=== PATIENT | female | born 1995 | race Two or more races ===

== ENCOUNTER 2019-01-18 11:06 | Emergency (ER) | payer OTHER ==
[~2019-01-18] VITALS: Ht 162.6 cm; Wt 75.7 kg
[2019-01-18 12:19] LABS: BILIRUBIN,URINE NEGATIVE (NEG); CLARITY,URINE CLEAR; COLOR,URINE YELLOW; NITRITE,URINE NEGATIVE (NEG); PROTEIN,URINE 30 mg/dL (NEG-TRACE); UROBILINOGEN,URINE 0.2 mg/dL (0.2 mg/dL)
[2019-01-18 12:28] LABS: BASO % 0 % (0-3); EOS # 0.1 x10^3/uL (0.0-0.7); EOS % 1 % (0-3); HEMATOCRIT 37.5 % (36.0-47.0); LYMPH # 1.4 x10^3/uL (1.0-4.8); LYMPH % 12 % (24-48); MEAN CORPUSCULAR HEMOGLOBIN 31 pg (25-35); MEAN CORPUSCULAR HGB CONC 35 g/dL (31-37); MEAN CORPUSCULAR VOLUME 88 fL (79-100); MONO # 0.6 x10^3/uL (0.0-1.1); MONO % 5 % (0-9); NEUT # 9.5 x10^3/uL (1.8-7.7); NEUT % 82 % (31-73); PLATELET COUNT 192 x10^3/uL (140-400); RED BLOOD COUNT 4.26 x10^6/uL (3.50-5.40); RED CELL DISTRIBUTION WIDTH 12.9 % (11.5-14.5); WHITE BLOOD COUNT 11.6 x10^3/uL (4.0-11.0)
[2019-01-18 12:29] LABS: BACTERIA,URINE FEW /HPF (0-FEW); SQUAMOUS EPITHELIAL CELL,UR MOD /LPF
[2019-01-18] MEDS ORDERED: IV NORMAL SALINE 500ML BAG 500 ML IV ONE (12:30)
--- NOTE | 2019-01-18 12:33 | PHYS DOC ---
Past Medical History Past Medical History: No Pertinent History Past Surgical History: No Surgical History Alcohol Use: None Drug Use: None Adult General Chief Complaint Chief Complaint: ABDOMINAL PAIN IN HPI HPI Patient is a 23 year old female presents to the ER stating that she is 18 weeks and that around 10:00 this morning she started having lower abdominal pain and fluid started leaking out of her vagina. She states that the fluid was clear in color. Describes the pain as 3 out of 10 in severity with a dull ache. Denies any other complaints. She is unsure when her last menstrual period was she thinks it was around August or September. Review of Systems Review of Systems Constitutional: Denies fever or chills [] Eyes: Denies change in visual acuity, redness, or eye pain [] HENT: Denies nasal congestion or sore throat [] Respiratory: Denies cough or shortness of breath [] Cardiovascular: No additional information not addressed in HPI [] GI: Reports abdominal pain, Denies nausea, vomiting, bloody stools or diarrhea [] : Denies dysuria or hematuria [] Musculoskeletal: Denies back pain or joint pain [] Integument: Denies rash or skin lesions [] Neurologic: Denies headache, focal weakness or sensory changes [] Endocrine: Denies polyuria or polydipsia [] Complete systems were reviewed and found to be within normal limits, except as documented in this note. Current Medications Current Medications Current Medications Medications (Trade) Dose Ordered Sig/Ce Start Time Stop Time Status Last Admin Dose Admin Sodium Chloride 500 ml @ 500 mls/hr 1X ONCE 01/18/19 12:30 01/18/19 13:29 DC 01/18/19 12:57 500 MLS/HR Allergies Allergies Allergies Coded Allergies Type Severity Reaction Last Updated Verified No Known Drug Allergies 01/18/19 No Physical Exam Physical Exam Constitutional: Well developed, well nourished, no acute distress, non-toxic appearance. [] HENT: Normocephalic, atraumatic, bilateral external ears normal, oropharynx moist, no oral exudates, nose normal. [] Eyes: PERRLA, EOMI, conjunctiva normal, no discharge. [] Neck: Normal range of motion, no tenderness, supple, no stridor. [] Cardiovascular:Heart rate regular rhythm, no murmur [] Lungs & Thorax: Bilateral breath sounds clear to auscultation [] Abdomen: Bowel sounds normal, soft, mild lower tenderness, no masses, no pulsatile masses. [] Skin: Warm, dry, no erythema, no rash. [] Back: No tenderness, no CVA tenderness. [] Extremities: No tenderness, no cyanosis, no clubbing, ROM intact, no edema. [] Neurologic: Alert and oriented X 3, normal motor function, normal sensory function, no focal deficits noted. [] Psychologic: Affect normal, judgement normal, mood normal. [] Current Patient Data Vital Signs Vital Signs Date Time Temp Pulse Resp B/P (MAP) Pulse Ox O2 Delivery O2 Flow Rate FiO2 01/18/19 12:00 98.4 69 20 117/57 (77) 100 Room Air 98.4 Lab Values Laboratory Tests Test 01/18/19 11:55 01/18/19 12:15 Urine Collection Type Unknown Urine Color Yellow Urine Clarity Clear Urine pH 6.0 Urine Specific [place] 1.015 Urine Protein 30 mg/dL (NEG-TRACE) Urine Glucose (UA) Negative mg/dL (NEG) Urine Ketones (Stick) Negative mg/dL (NEG) Urine Blood Large (NEG) Urine Nitrite Negative (NEG) Urine Bilirubin Negative (NEG) Urine Urobilinogen Dipstick 0.2 mg/dL (0.2 mg/dL) Urine Leukocyte Esterase Moderate (NEG) Urine RBC 11-20 /HPF (0-2) Urine WBC 11-20 /HPF (0-4) Urine Squamous Epithelial Cells Mod /LPF Urine Bacteria Few /HPF (0-FEW) Urine Mucus Mod /LPF White Blood Count 11.6 x10^3/uL (4.0-11.0) H Red Blood Count 4.26 x10^6/uL (3.50-5.40) Hemoglobin 13.0 g/dL (12.0-15.5) Hematocrit 37.5 % (36.0-47.0) Mean Corpuscular Volume 88 fL (79-100) Mean Corpuscular Hemoglobin 31 pg (25-35) Mean Corpuscular Hemoglobin Concent 35 g/dL (31-37) Red Cell Distribution Width 12.9 % (11.5-14.5) Platelet Count 192 x10^3/uL (140-400) Neutrophils (%) (Auto) 82 % (31-73) H Lymphocytes (%) (Auto) 12 % (24-48) L Monocytes (%) (Auto) 5 % (0-9) Eosinophils (%) (Auto) 1 % (0-3) Basophils (%) (Auto) 0 % (0-3) Neutrophils # (Auto) 9.5 x10^3/uL (1.8-7.7) H Lymphocytes # (Auto) 1.4 x10^3/uL (1.0-4.8) Monocytes # (Auto) 0.6 x10^3/uL (0.0-1.1) Eosinophils # (Auto) 0.1 x10^3/uL (0.0-0.7) Basophils # (Auto) 0.0 x10^3/uL (0.0-0.2) Maternal Serum HCG Beta Subunit 09135 mIU/mL (0-5) H Sodium Level 141 mmol/L (136-145) Potassium Level 3.1 mmol/L (3.5-5.1) L Chloride Level 104 mmol/L (98-107) Carbon Dioxide Level 22 mmol/L (21-32) Anion Gap 15 (6-14) H Blood Urea Nitrogen 4 mg/dL (7-20) L Creatinine 0.6 mg/dL (0.6-1.0) Estimated GFR (Cockcroft-Gault) 125.0 BUN/Creatinine Ratio 7 (6-20) Glucose Level 89 mg/dL (70-99) Calcium Level 8.8 mg/dL (8.5-10.1) Total Bilirubin 0.5 mg/dL (0.2-1.0) Aspartate Amino Transferase (AST) 11 U/L (15-37) L Alanine Aminotransferase (ALT) 13 U/L (14-59) L Alkaline Phosphatase 46 U/L (46-116) Total Protein 7.3 g/dL (6.4-8.2) Albumin 3.5 g/dL (3.4-5.0) Albumin/Globulin Ratio 0.9 (1.0-1.7) L Laboratory Tests 01/18/19 12:15 Laboratory Tests 01/18/19 12:15 EKG EKG [] Radiology/Procedures Radiology/Procedures [][facility] [address] [place] [address] IMAGING REPORT Signed PATIENT: KANU HERNANDEZ ACCOUNT: [id number] : 1995 LOCATION: ER AGE: 23 SEX: F EXAM STATUS: REG ER ORD. PHYSICIAN: CORIE GARCÍA APRN REASON: abdominal pain; 18 weeks PROCEDURE: PREG MORE THAN OR EQ TO 14 WKS Examination: PREG MORE THAN OR EQ TO 14 WKS History: Pain Comparison/Correlation: None Findings: Single living intrauterine gestation is present. Heart rate is 105 bpm. Minimal movement identified. Cardiac activity is seen. Maternal cervical length is 4.02 cm. Anteriorly wall located placenta is present. No subchorionic hemorrhage. Amniotic fluid index is 0. No significant canal or fluid identified. Biparietal diameter 3.31 cm corresponding 16 weeks 2 days. Head circumference is 12.68 cm corresponding to 16 weeks 3 days. Abdominal circumference is 13.14 cm corresponding to 18 weeks 5 days. Femur length could not be determined. Femur was not well delineated. Head circumference to abdominal circumference ratio 0.96. Sonographic EDC is 06/27/2019. Gestational age is 17 weeks 1 day. Impression: 17 weeks 1 day intrauterine gestation. No amniotic fluid. Minimal movement. The referring emergency room physician was informed by the sterile processing technologist performing the exam. On Electronically signed by: Marty Avila MD (01/18/2019 1:50 PM) [facility] DICTATED and SIGNED BY: MARTY AVILA MD DATE: 01/18/19 0962 Course & Med Decision Making Course & Med Decision Making Pertinent Labs and Imaging studies reviewed. (See chart for details) Will get labs, Ultrasound, and give fluids. Labs show urinary tract infection, HCG of 13,100 (going down?), and ultrasound suggests probable miscarriage. Will have follow up with OB in 2 days for further workup. Patient is RH + and does not need Rhogam. Dragon Disclaimer Dragon Disclaimer This electronic medical record was generated, in whole or in part, using a voice recognition dictation system. Departure Departure Impression: Primary Impression: Urinary tract infection Additional Impression: Threatened Disposition: 01 HOME, SELF-CARE Condition: STABLE Referrals: UNKNOWN PCP NAME (PCP) DENI DAVENPORT MD Patient Instructions: - Urinary Tract Infection, Threatened Mis carriage Additional Instructions: Thank you for visiting [facility]. We appreciate you trusting us with your care. If any additional problems come up don't hesitate to return to visit us. Please follow up with your primary care provider so they can plan additional care if needed and know about the problem that you had. If symptoms worsen come back to the Emergency Department. Any concerning symptoms that start such as chest pain, shortness of air, weakness or numbness on one side of the body, running high fevers or any other concerning symptoms return to the ER. You have been prescribed an antibiotic today to help fight your infection. Please take all of the antibiotic as directed. If after 48 hours the infection is not improving, please return for more care. If the infection worsens, return to ER for additional care. Please follow up with your OB in 2 days. Scripts Cephalexin (KEFLEX) 500 Mg Capsule 1 CAP PO BID for 7 Days, #14 CAP 0 Refills Prov: CORIE GARCÍA APRN 01/18/19 Problem Qualifiers Primary Impression: Urinary tract infection Urinary tract infection type: acute cystitis Hematuria presence: with hematuria Qualified Codes: N30.01 - Acute cystitis with hematuria CORIE GARCÍA APRN Jan 18, 2019 12:33
[2019-01-18 12:36] LABS: CALCIUM 8.8 mg/dL (8.5-10.1); CREATININE 0.6 mg/dL (0.6-1.0); POTASSIUM 3.1 mmol/L (3.5-5.1)
[2019-01-18 12:42] LABS: ALBUMIN 3.5 g/dL (3.4-5.0); ALBUMIN/GLOBULIN RATIO 0.9 (1.0-1.7); TOTAL BILIRUBIN 0.5 mg/dL (0.2-1.0); TOTAL PROTEIN 7.3 g/dL (6.4-8.2)
--- NOTE | 2019-01-18 13:53 | RAD ---
Examination: PREG MORE THAN OR EQ TO 14 WKS History: Pain Comparison/Correlation: None Findings: Single living intrauterine gestation is present. Heart rate is 105 bpm. Minimal movement identified. Cardiac activity is seen. Maternal cervical length is 4.02 cm. Anteriorly wall located placenta is present. No subchorionic hemorrhage. Amniotic fluid index is 0. No significant canal or fluid identified. Biparietal diameter 3.31 cm corresponding 16 weeks 2 days. Head circumference is 12.68 cm corresponding to 16 weeks 3 days. Abdominal circumference is 13.14 cm corresponding to 18 weeks 5 days. Femur length could not be determined. Femur was not well delineated. Head circumference to abdominal circumference ratio 0.96. Sonographic EDC is 06/27/2019. Gestational age is 17 weeks 1 day. Impression: 17 weeks 1 day intrauterine gestation. No amniotic fluid. Minimal movement. The referring emergency room physician was informed by the instructional technologist performing the exam. On Electronically signed by: Marty Masterson MD (01/18/2019 1:50 PM) [facility]
[2019-01-18] MEDS ORDERED: CEPH-264 PO (13:55)
[2019-01-18 14:00] VITALS: BP 114/72
== END 2019-01-18 14:43 | disposition home or self-care (01) ==
LOC: ER 11:06
DX: O23.42 Unspecified infection of urinary tract in pregnancy, second trimester (principal); O20.0 Threatened abortion; Z3A.17 17 weeks gestation of pregnancy
CPT/HCPCS: 36415; 76805; 80053; 81001; 84702; 85025; 86900; 86901; 87086; 99285; J7040